=== PATIENT | female | born 1990 | race Asian ===

== ENCOUNTER 2024-04-28 01:39 | Emergency (ER) | payer OTHER, SELFPAY ==
[2024-04-28] MEDS: TYLENOL 1000 MG PO (02:53)
--- NOTE | 2024-04-28 05:28 | ED.GENMED ---
History of Present Illness
General
Chief Complaint: Skin Surface Trauma
Source: patient
Exam Limitations: none
Time Seen by Provider: 04/28/24 05:02
Nursing documentation reviewed up to this point in time: agreed with
History of Present Illness
History of Present Illness:
This is a 33-year-old woman with no history of hypothyroidism, overweight, who states she inadvertently rolled out of bed and struck her left lateral cheek on the bedside table. No loss of consciousness. She takes no anticoagulants. She denies
headache, denies neck or back pain, no vision difficulty.
She complains of a laceration to her left lateral cheek/lateral inferior orbital region that bled a fair amount initially but has since subsided with local pressure.
She complains of pain to her left lateral cheek region.
Up-to-date with Tdap.
Past History
Past History
ED Past Medical History: Hypothyroidism and Other (Overweight)
ED Past Surgical History: None
Social History
Tobacco: Non-smoker
Alcohol: None
Personal:
Living: with family
Family History
Family History: Other (Noncontributory)
Phy Exam
Physical Exam
Physical Exam:
TRAUMA EXAM:
VITAL SIGNS: Vital signs reviewed, cooperative
DISTRESS: No active disease
EYES: Pupils reactive, extraocular muscles intact. There is a superficial puncture wound with superficial laceration approximately 0.4 cm by 0.3 cm left lateral cheek/left inferior lateral orbital region. There is mild ecchymosis and minimal soft
tissue swelling along the lateral cheek with mild local tenderness to palpation along the left zygoma. There is no crepitus nor palpable bony abnormality. No depression deformity.
NOSE: No deformity or epistaxis
FACE AND SCALP: No scalp trauma, external canals no blood
NECK: Supple nontender
BACK: Back nontender, pelvis stable to compression
RESPIRATORY: No distress, breath sounds normal, no tender chest wall
CARDIAC: No murmur, pulses equal and strong
ABDOMEN: Soft nontender bowel sounds normal
SKIN: Skin intact no bleeding, color normal
EXTREMITIES: Nontender
NEUROLOGICAL: Alert, oriented, no motor deficits
PSYCH: Mood affect normal
Course
Orders/Labs/Results
Orders:
Orders
04/28/24 02:51
Acetaminophen [Tylenol] 1,000 mg .ROUTE .STK-MED ONE
04/28/24 02:53
Acetaminophen [Tylenol] 1,000 mg PO NOW STA
04/28/24 02:58
CR Zygo Arches Min 3 Views Urgent
Comment:
Reason For Exam: fall out of bed
Vital Signs
Initial and Last Documented VS:
Initial Vital Signs
Temp Pulse Resp BP Pulse Ox
97.8 F 86 20 132/90 100
04/28/24 01:42 04/28/24 01:42 04/28/24 01:42 04/28/24 01:42 04/28/24 01:42
Last Documented Vital Signs
Temp Pulse Resp BP Pulse Ox
97.8 F 69 14 108/70 99
04/28/24 01:42 04/28/24 03:51 04/28/24 03:51 04/28/24 03:51 04/28/24 03:51
Procedures
Laceration Closure
Left Lateral Cheek:
Status of Wound: clean
Size of Wound in cm: 0.4
Description of Wound Edges: other (Superficial abrasion type injury)
Preparation: cleaned with saline
Revision/Debridement: routine- no revision and irrigate-direct pressure
Wound exploration: explored to base- no FB and no tendon involvement
Type of Closure: Dermabond-skin glue
MDM/Problems Addressed
Differential Diagnosis Includes:
Patient presents with left lateral cheek contusion, superficial laceration/abrasion. Concern for potential occult fracture of the zygoma.
Zygomatic arches performed which is negative for fracture.
Patient reports relief of pain after dose of Tylenol.
She is up-to-date with Tdap.
Will plan for Dermabond wound repair and Steri-Strip.
Recommend supportive measures, local ice, Tylenol versus ibuprofen as needed for pain.
Wound care instructions provided as well.
*Radiology
Radiology exam reviewed: preliminary read by ED provider (Zygomatic arch is negative for fracture.)
*Pulse Oximetry
Patient hypoxic: no
*Critical Care Note
Total Time (30-74mins, 75-104mins- exclusive of procedures): Not Applicable
ED Attending Note
-
Portions of this chart may have been created with voice recognition software.� Occasional wrong word or��sound alike� substitutions may have occurred due to the inherent limitations of voice recognition software.
Discharge Plan
Departure
Patient Disposition: Home (Routine Discharge)
Date of Disposition: 04/28/24
Time of Disposition: 05:28
Patient with high blood pressure during this ER visit?: No
Condition: Good
Discharge Problem:
Contusion of left cheek, laceration left lateral cheek
Instructions: Laceration Repair With Glue (DC), Steri-Strips over Glued Wound
Prescriptions:
No Action
levothyroxine 25 mcg Tablet
25 mcg PO SUTUTHSA
levothyroxine 25 mcg Tablet
50 mcg PO MOWEFR
Zepbound 7.5 mg/0.5 mL Pen Injector
7.5 mg SC QWEEK
Referrals:
Anya Nath DO [Family Provider] - Follow up in 5-7 days
Interventions
Interventions:
*Risk Screen - Suicide Last Done: 04/28/24 01:42
*General Assessment Last Done: 04/28/24 03:51
*Neglect/Abuse Screening Last Done: 04/28/24 01:42
*ED- Fall Risk Assessment Last Done: 04/28/24 03:51
*ED COVID-19 Vaccine History Last Done: 04/28/24 03:51
ED-Musculoskeletal Assessment Last Done: 04/28/24 03:51
ED- Neurological Assessment Last Done: 04/28/24 03:51
ED-Skin Assessment Last Done: 04/28/24 03:51
Discharge Date and Time
Print Language: MOLDOVAN
== END 2024-04-28 05:35 | disposition home or self-care (01) ==
LOC: EMR 01:39
PROVIDERS: EMERGENCY PHYSICIAN Emergency Medicine; FAMILY PHYSICIAN Family Medicine
DX: S01.412A Laceration without foreign body of left cheek and temporomandibular area, initial encounter (principal); W06.XXXA Fall from bed, initial encounter
CPT/HCPCS: 99283; 12011; 70150

== ENCOUNTER 2024-12-02 12:15 | Emergency (ER) | payer OTHER, SELFPAY ==
[2024-12-02 12:21] VITALS: BP 110/81
[2024-12-02 12:41] LABS: Hematocrit 42.7 % (37.0-47.0); Hemoglobin 13.7 g/dL (12.0-16.0); Mean Corp Hgb Conc. 32.1 g/dL (33.0-37.0); Mean Corpuscular Volume 82.1 fL (81.0-99.0); Nucleated Red Blood Cells % 0 %; Platelet Count 393 10^3/uL (130-400); Red Cell Dist. Width 12.3 % (11.5-14.5)
[2024-12-02 13:01] LABS: HCG, Serum Qualitative Screen Negative
--- NOTE | 2024-12-02 13:03 | ED.GENMED ---
History of Present Illness
General
Chief Complaint: Back Pain
Time Seen by Provider: 12/02/24 13:03
History of Present Illness
History of Present Illness:
FOCUSED PAST MEDICAL HISTORY
- Hypothyroidism, has had 2 C-sections
REVIEW OF OLD RECORDS
- The patient was seen here in April diagnosed with a facial contusion
Note:
CHIEF COMPLAINT(S)
Right side abdominal pain.
HISTORY OF PRESENT ILLNESS
The patient is a 34-year-old female presenting with right-sided abdominal pain that began suddenly yesterday at approximately 10:00 AM. She describes the pain as severe, rating it 7 out of 10, and mentioned it was significant enough to impair her
ability to sit or drive comfortably. Initially, she attempted to mitigate the pain with omeprazole and dicyclomine, medications recommended by her sister, a physician. She reports feeling a cramping sensation in the abdomen but denies any burning
sensation during urination, which implies she may not be experiencing dysuria. The patient has also experienced headaches during pain episodes, attributing these symptoms to 'acidity,' which she describes as stomach acid reflux. She states she has
not experienced fever. Physical examination reveals some discomfort with certain positional changes and minimal, if any, costovertebral angle tenderness.
ADDITIONAL HISTORY OBTAINED FROM SOURCES OTHER THAN THE PATIENT
The patients sister, an emergency medicine physician, suggested she try omeprazole and dicyclomine for symptom relief.
SOCIAL DETERMINANTS AFFECTING HEALTH
The patient appears to have familial support, as her sister, who is a physician, is involved in her care decisions.
REVIEW OF SYSTEMS
- Gastrointestinal: Cramping sensation in the abdomen, severe pain on the right side.
- Neurological: Reports headaches when in pain.
- Urinary: No dysuria reported.
- Constitutional: No fever reported.
PHYSICAL EXAM
General: Alert, no acute distress. Appears comfortable, but increased pain with certain position changes.
Skin: Warm, dry.
Head: Normocephalic, atraumatic.
Neck: Supple, trachea midline.
Eye, Ears, Nose, Mouth and Throat: Oral mucosa moist.
Cardiovascular: Regular rhythm; no edema.
Respiratory: Clear lungs, respirations are non-labored.
Gastrointestinal: Abdomen soft, non-tender. Minimal right CVA tenderness if any
Back: Normal range of motion, normal alignment.
Musculoskeletal: Normal ROM, normal strength.
Neurological: Alert and oriented to person, place, time, and situation.
Psychiatric: Cooperative, appropriate mood and affect.
PROBLEM LIST
- Acute right-sided abdominal pain.
PLAN
1. Obtain a urine sample for laboratory analysis.
2. Consider the possibility of a kidney stone and plan for a computed tomography (CT) scan of the abdomen.
3. Discussed the option of intravenous pain management with ketorolac, an anti-inflammatory medication, which the patient may consider.
4. Continue with symptomatic management and reassessment.
DIFFERENTIAL DIAGNOSIS
The Differential Diagnosis includes, in no particular order and is not limited to:
1. Kidney stone
2. Ureteral obstruction
3. Urinary tract infection
4. Appendicitis
5. Gallbladder disease
6. Gastroenteritis
7. Gynecological issues
8. Musculoskeletal pain
9. Abdominal muscle strain
10. Bowel obstruction
RADIOLOGY
- CT imaging shows malposition of the IUD
LABS
- CBC normal, hCG negative, urinalysis negative
UPDATE
-SUMMARY OF ENCOUNTER
The patient was evaluated in the emergency department for right-sided abdominal pain. Upon examination, imaging studies were reviewed which highlighted an abnormal positioning of her intrauterine device (IUD), suspected to be out of place and likely
contributing to her symptoms. There were no findings indicative of a urinary tract or kidney infection, kidney stone, or intestinal issues. The recommendation was made for the patient to contact her urologic surgeon, as a procedure may be required to
address the IUD displacement. The patient was advised to reach out to her initial placement provider at [facility] or to Dr. Luna at [facility] for further evaluation.
DISPOSITION
Discharge.
ASSESSMENT
The patients right-sided abdominal pain is likely due to the displacement of her intrauterine device (IUD).
PLAN
The patient will follow up with her urologic surgeon. Recommendations included contacting [facility], where the [facility] was placed, or Dr. Luna at [facility] for prompt evaluation and management of the displaced IUD.
INDEPENDENT REVIEW OF LABS AND INTERPRETATION OF TESTS
My independent interpretation of radiological imaging indicates the IUD is displaced from its expected position within the uterus.
PATIENT EDUCATION AND COUNSELING
The patient was informed about the abnormal positioning of the IUD and that it might be contributing to her abdominal pain. She was advised about the need for further evaluation by her urologic surgeon and possibly a procedure to reposition or remove
the IUD.
FOLLOW-UP INSTRUCTIONS
The patient was advised to contact [facility] or Dr. Luna for further evaluation and management of the displaced IUD.
MEDICATION RECONCILIATION
Patient advised to take acetaminophen 1,000 mg up to four times a day for pain management, which is equivalent to prescription strength.
MEDICAL DECISION MAKING
-Complexity of Data Reviewed: DDx list includes possible causes for the patients symptoms such as kidney stones, appendicitis, gallbladder disease, among others. Displacement of IUD identified upon imaging.
-Data:
Category 1: My independent interpretation of radiological imaging indicates the IUD is displaced.
Category 2: Clinical information regarding previous placement collected from imaging studies and from patients history.
Category 3: Discussion of management was conducted with an on-call doctor, suggesting follow-up with urologic surgeon for non-emergency procedural intervention.
-Risk: Consideration of Admission/Observation: Escalation of care including admission/observation was considered given the complexity and risk of the patients presenting complaint. However, the patient is safe for outpatient management with close
follow-up as symptoms are controlled and vitals are stable. The patient is agreeable with discharge and reliable for follow-up.
DIAGNOSIS
Displacement of intrauterine contraceptive device (IUD) [T83.32XA].
I discussed case with Dr. Luna, she recommends that she have nonemergent outpatient procedure; the patient's IUD was initially placed at [facility] about 3 years ago and has 1 more recently since been seeing Jessica�I recommend that she
initially try calling them first but I have also given her the contact information for Dr. Luna
Past History
Past History
ED Past Medical History: Hypothyroidism and Other (Overweight)
ED Past Surgical History: None
Social History
Tobacco: Non-smoker
Alcohol: None
Personal:
Living: with family
Family History
Family History: Other (Noncontributory)
Phy Exam
Physical Exam
Physical Exam:
See HPI
Course
Orders/Labs/Results
Orders:
Orders
12/02/24 12:24
Test Result ONCE
12/02/24 12:29
Complete Blood Count/With Diff Urgent
Comprehensive Metabolic Panel Urgent
HCG, Serum Qualitative Screen Urgent
Lipase Urgent
12/02/24 13:16
CT Abd/pel Without Iv Or Oral Urgent
Comment:
Reason For Exam: R flank pain acute
12/02/24 13:19
Urinalysis Reflex To Culture Urgent
Date Specimen was Collected: 12/02/24
Time Specimen was Collected: 13:15
Abnormal Lab Results
12/02/24
12:29
MCH 26.3 L pg
(27.0-31.0)
MCHC 32.1 L g/dL
(33.0-37.0)
Creatinine 0.5 L mg/dL
(0.6-1.0)
Glucose 118 H mg/dl
(70-99)
Alkaline Phosphatase 36 L U/L
(38-126)
12/02/24 12:29
12/02/24 12:29
Vital Signs
Initial and Last Documented VS:
Initial Vital Signs
Temp Pulse Resp BP Pulse Ox
36.7 C 78 20 110/81 98
12/02/24 12:21 12/02/24 12:21 12/02/24 12:21 12/02/24 12:21 12/02/24 12:21
Last Documented Vital Signs
Temp Pulse Resp BP Pulse Ox
36.7 C 78 20 110/81 98
12/02/24 12:21 12/02/24 12:21 12/02/24 12:21 12/02/24 12:21 12/02/24 13:04
*Pulse Oximetry
SaO2: 98
Oxygen Mode of Delivery: Room air
Patient hypoxic: no
*Critical Care Note
Total Time (30-74mins, 75-104mins- exclusive of procedures): Not Applicable
ED Attending Note
-
Portions of this chart may have been created with voice recognition software.� Occasional wrong word or��sound alike� substitutions may have occurred due to the inherent limitations of voice recognition software.
Discharge Plan
Departure
Patient Disposition: Home (Routine Discharge)
Date of Disposition: 12/02/24
Time of Disposition: 15:01
Patient with high blood pressure during this ER visit?: Yes
Discharge Problem:
Complication of intrauterine device (IUD)
Instructions: Abdominal Pain, BLOOD PRESSURE
Prescriptions:
No Action
levothyroxine 25 mcg Tablet
25 mcg PO SUTUTHSA
levothyroxine 25 mcg Tablet
50 mcg PO MOWEFR
Zepbound 7.5 mg/0.5 mL Pen Injector
7.5 mg SC QWEEK
Referrals:
Yamel Luna MD [Active, Gynecology]
Anya Nath DO [Family Provider, Family Practice]
Activity Restrictions/Additional Instructions:
I have attached the CAT scan report below:
CHEST:The included lung bases are predominantly clear.
ABDOMEN:Evaluation of the organs of the abdomen are limited without intravenous contrast, without gross focal intrinsic abnormality of the unenhanced liver, gallbladder, pancreas, spleen or adrenal glands. There is no urinary tract calculus,
dilatation or perinephric stranding bilaterally. Evaluation of the intestinal tract markedly limited without oral or intravenous contrast. There is no gross intestinal obstruction, free air or right lower quadrant inflammatory changes, likely
unremarkable appendix. Few right lower quadrant subcentimeter mesenteric lymph nodes. The abdominal aorta is normal in caliber. There is no retroperitoneal lymphadenopathy or findings to suggest retroperitoneal hemorrhage.
PELVIS:IUD is seen rotated, off axis, vertically oriented, not within the endometrial canal, possibly one wing extending through the uterus into the periuterine soft tissues, axial image 99 series 201 and sagittal reformatted image 58.
SKELETON:There is no focal suspicious osseous lesion.
IMPRESSION:
No findings to suggest urinary tract calculus, dilatation or perinephric stranding bilaterally.
IUD seen rotated, off axis, not positioned within the endometrial canal, and with one wing likely extending through the uterus into the periuterine fat.
I discussed the findings with our on-call urologic surgeon, Dr. Luna, she recommends that you follow-up with your doctors at [facility] or going back to [facility] for their evaluation. This will likely need to be removed but not necessarily on
an emergency basis. Call one of their offices to arrange close follow-up.
Take copy of your CAT scan with you to discuss with your doctors
Interventions
Interventions:
*Risk Screen - Suicide Last Done: 12/02/24 13:20
*General Assessment Last Done: 12/02/24 12:21
*Neglect/Abuse Screening Last Done: 12/02/24 13:20
*ED- Fall Risk Assessment Last Done: 12/02/24 13:20
*ED COVID-19 Vaccine History Last Done: 12/02/24 13:20
*ED Influenza Vaccine History Last Done: 12/02/24 13:20
BI-[id number] Assessment Last Done: 12/02/24 13:20
ED-Musculoskeletal Assessment Last Done: 12/02/24 13:20
Discharge Date and Time
Print Language: ARMENIAN
[2024-12-02 13:14] LABS: ALT (SGPT) 12 U/L (0-35); AST (SGOT) 16 U/L (14-36); Albumin 4.2 g/dl (3.5-5.0); Alkaline Phosphatase 36 U/L (38-126); Blood Urea Nitrogen 9 mg/dl (7-17); Calcium 9.4 mg/dl (8.4-10.2); Carbon Dioxide 24 mmol/L (22-30); Chloride 107 mmol/L (98-107); Glucose 118 mg/dl (70-99); Lipase 51 U/L (23-300); Potassium 3.9 mmol/L (3.5-5.1); Sodium 135 mmol/L (135-145); Total Protein 6.9 g/dl (6.3-8.2); eGFR > 60.00
[2024-12-02 13:20] VITALS: BMI 27.3
[2024-12-02 14:00] LABS: Urine Character Clear (Clear)
[2024-12-02 15:39] VITALS: BP 101/70
--- NOTE | 2024-12-02 15:39 | EDRN ---
REviewed discharge instructions with patient. Verbalized understanding. Ambulated with steady gait to the lobby.
== END 2024-12-02 15:40 | disposition home or self-care (01) ==
LOC: EMR 12:15
PROVIDERS: Student in an Organized Health Care Education/Training Program; EMERGENCY PHYSICIAN Emergency Medicine; FAMILY PHYSICIAN Family Medicine
DX: T83.32XA Displacement of intrauterine contraceptive device, initial encounter (principal); Y76.2 Prosthetic and other implants, materials and accessory obstetric and gynecological devices associated with adverse incidents; R03.0 Elevated blood-pressure reading, without diagnosis of hypertension; E03.9 Hypothyroidism, unspecified
CPT/HCPCS: 99284; 74176; 80053; 81003; 83690; 84703; 85025

== ENCOUNTER 2024-12-30 13:22 | Emergency (ER) | payer OTHER, SELFPAY ==
[2024-12-30 13:31] VITALS: BP 147/79
[2024-12-30 13:54] LABS: Hematocrit 45.4 % (37.0-47.0); Hemoglobin 14.6 g/dL (12.0-16.0); Mean Corp Hgb Conc. 32.2 g/dL (33.0-37.0); Mean Corpuscular Volume 82.2 fL (81.0-99.0); Nucleated Red Blood Cells % 0 %; Platelet Count 378 10^3/uL (130-400); Red Cell Dist. Width 12.2 % (11.5-14.5)
[2024-12-30 14:06] LABS: HCG, Serum Qualitative Screen Negative
[2024-12-30 14:52] LABS: Blood Urea Nitrogen 9 mg/dl (7-17); Calcium 9.9 mg/dl (8.4-10.2); Carbon Dioxide 25 mmol/L (22-30); Chloride 106 mmol/L (98-107); Glucose 98 mg/dl (70-99); Sodium 136 mmol/L (135-145); eGFR > 60.00
[2024-12-30 18:38] VITALS: BP 115/77
[2024-12-30 19:00] VITALS: BP 116/79
[2024-12-30 19:33] VITALS: BP 109/77
[2024-12-30 20:01] VITALS: BP 111/69
--- NOTE | 2024-12-30 20:02 | ED.GENMED ---
History of Present Illness
General
Chief Complaint: Numbness
Source: patient
Exam Limitations: none
Time Seen by Provider: 12/30/24 19:40
Nursing documentation reviewed up to this point in time: agreed with
History of Present Illness
History of Present Illness:
Note:
CHIEF COMPLAINT(S)
Right-sided numbness and pain in the face, foot, and hand.
HISTORY OF PRESENT ILLNESS
The patient is a 34-year-old female who presents with right-sided numbness and pain affecting her face, foot, and hand. The symptoms began this morning. The patient describes her right side as feeling �numb� and �different.� She reports associated
pain in her right hand and foot, with difficulty applying the brake while driving. The patient is right-handed and has difficulty sleeping on her right side due to discomfort. She uses acetaminophen and ibuprofen for pain relief, which helps mildly,
but she avoids sleeping on her right side as it exacerbates the discomfort.
The patient recently returned from [facility] in October. She had an intrauterine device (IUD) removed in November due to malposition and subsequent abdominal cramps. This removal was performed after experiencing back pain and cramps thought to be
related to a potential kidney stone. The patient states the IUD may have been penetrating the uterus, initiating initial pain. Post-removal, she noted pain radiating to the feet, complicating driving. The tramadol, obtained during a trip to [facility],
was prescribed for general pain management and as a precaution.
The patient also stopped her Zepound (an obesity medication) injections two months ago due to her current health conditions. She was initially prescribed this medication for weight management, with an initial weight of 196 pounds.
The patient experiences difficulty driving due to pain and is avoiding the use of her right hand as much as possible. She notes her right side feels less responsive and experiences persistent numbness. She does not report any rash or headaches.
PAST MEDICAL AND SURIGICAL HISTORY
The patient had an intrauterine device malposition, which required removal.
SOCIAL DETERMINANTS AFFECTING HEALTH
The patient recently returned from a trip to [facility]. Tramadol was obtained during this trip as a precaution for potential pain management needs.
SOCIAL HISTORY
The patient resides in the [place] and was visiting family in [place].
MEDICATIONS
- Acetaminophen
- Ibuprofen
- Previously on Zepound injections for weight management
REVIEW OF SYSTEMS
- Neurological: Right-sided numbness and pain in face, foot, and hand.
- Musculoskeletal: Difficulty using right hand and foot.
- General: No headaches or rashes reported.
PHYSICAL EXAM
General: Alert, no acute distress.
Skin: Warm, dry.
Head: Normocephalic, atraumatic.
Neck: Supple, trachea midline.
Eyes, Ears, Nose, Mouth, and Throat: Oral mucosa moist.
Cardiovascular: Normal peripheral perfusion, No edema.
Respiratory: Respirations are non-labored.
Gastrointestinal: Abdomen nondistended.
Back: Normal range of motion, normal alignment.
Musculoskeletal: Reduced sensation but normal muscle strength on right side.
Neurological: Alert and oriented to person, place, time, and situation, noticeable right-sided weakness.
Psychiatric: Cooperative, appropriate mood & affect.
PROBLEM LIST
Acute Problems:
- Right-sided numbness and pain in face, hand, foot.
- Pain after IUD removal.
PLAN
Discuss differential diagnosis and plan with a neurologist for further evaluation of potential nerve involvement. Consider further imaging and neurological assessments.
DIFFERENTIAL DIAGNOSIS
The Differential Diagnosis includes, in no particular order and is not limited to:
- Peripheral neuropathy
- Radiculopathy
- Cervical spondylosis
- Multiple sclerosis
- Transient ischemic attack
- Stroke
- Entrapment neuropathy
- Complex regional pain syndrome
- Myofascial pain syndrome
- Peripheral artery disease
CARE-UPDATE
12/30/24 - 20:21
Consulted with neurologist Dr. Rosas, who recommends follow-up labs including B12 and iron studies, and scheduling an MRI to evaluate for migraines or multiple sclerosis. Patient to initiate Lyrica (Pregabalin) at 25 mg three times daily, with
option to double dosage based on tolerance and efficacy. Advised that medication may cause sleepiness. Follow-up appointments to be scheduled with primary care and Dr. Rosas, with MRI ideally conducted at this hospital for better record access.
Discussed possibility of Zepbound contributing to weight loss and cold intolerance, but neurological causes not ruled out. Decision made to hold on restarting Zepbound until further evaluation. Discharge instructions to include all discussed next
steps and medication guidelines.
EKG
My independent EKG interpretation is:
- Rhythm: Normal sinus rhythm with sinus arrhythmia
- NJ Interval: Short NJ interval
- QRS Duration: Normal QRS
- [place]: Normal axis
- ST Segment: No ST elevation
Disposition:
SUMMARY OF ENCOUNTER
The patient, a 34-year-old female, presented to the emergency department with right-sided numbness and pain affecting her face, hand, and foot, which started the same morning. There was noticeable weakness and reduced sensation on the right side.
The patient recently stopped using Zepound injections and had an IUD removed, experiences affecting her general health. After consultation with a neurologist, it was determined that an MRI is needed for a thorough neurological evaluation. Lyrica
(pregabalin) was prescribed to manage her symptoms.
DISPOSITION
Discharge with follow-up.
ASSESSMENT
Paraparesis and numbness on the right side, possibly secondary to nerve pathology or side effects from significant recent weight loss and previous use of Zepound injections. Continued evaluation is necessary to rule out central nervous system causes.
MANAGEMENT OF THE PATIENTS CARE WAS DISCUSSED WITH
Consultation with a neurologist, Dr. Rosas, who recommends an MRI and follow-up with neurology.
PLAN
The patient will initiate treatment with Lyrica (pregabalin) at a low dose with the option to increase depending on tolerance and effectiveness. Scheduling an MRI scan to evaluate further and follow up with both primary care and neurology for
ongoing assessment and management.
PATIENT EDUCATION AND COUNSELING
Explained the potential causes of her symptoms and the importance of further evaluation through imaging and specialist consultation. Informed about the possibility of medication-induced symptoms and the anticipated effects and side effects of Lyrica.
FOLLOW-UP INSTRUCTIONS
Schedule follow-up appointments with primary care and neurology. Arrange for an MRI at this hospital for consistency in records and further investigation.
MEDICATION RECONCILIATION
Started on pregabalin (Lyrica) 25 mg, three times daily, to manage neurological symptoms, with possible adjustment of dosage based on response and tolerance.
MEDICAL DECISION MAKING
- Number and Complexity of Problems Addressed: Chronic conditions affecting care include previous IUD issues and recent Zepound use. Differential diagnosis includes peripheral neuropathy, radiculopathy, cervical spondylosis, multiple sclerosis,
transient ischemic attack, stroke, entrapment neuropathy, complex regional pain syndrome, myofascial pain syndrome, and peripheral artery disease.
- Data:
- Category 3: Management discussed with neurologist Dr. Rosas for further evaluation involving an MRI scan and follow-up.
- Risk: Prescription medication prescribed.
DIAGNOSIS
Right-sided paresthesia and weakness (ICD-10: R20.2) with neurological evaluation pending. Possible adverse effects from weight management medication and recent physical health changes.
Past History
Past History
ED Past Medical History: Hypothyroidism and Other (Overweight)
ED Past Surgical History: None
Social History
Tobacco: Non-smoker
Alcohol: None
Personal:
Living: with family
Family History
Family History: Other (Noncontributory)
Phy Exam
Physical Exam
Physical Exam:
.
Course
Orders/Labs/Results
Orders:
Orders
12/30/24 13:33
Electrocardiogram (*1) Urgent
Reason for Study: Palpitations
EKG- Treatment ONCE
Test Result ONCE
12/30/24 13:44
Basic Metabolic Panel Urgent
Complete Blood Count/With Diff Urgent
HCG, Serum Qualitative Screen Urgent
12/30/24 15:[address] [CT Head W/o Iv Contrast] Urgent
Comment:
Reason For Exam: numbness
12/30/24 20:30
Pregabalin [Lyrica] 25 mg PO NOW STA
Abnormal Lab Results
12/30/24
13:44
RBC 5.52 H 10^6/uL
(4.20-5.40)
MCH 26.4 L pg
(27.0-31.0)
MCHC 32.2 L g/dL
(33.0-37.0)
Lymphocytes % 17.7 L %
(20.5-51.1)
Creatinine 0.5 L mg/dL
(0.6-1.0)
12/30/24 13:44
12/30/24 13:44
Vital Signs
Initial and Last Documented VS:
Initial Vital Signs
Temp Pulse Resp BP Pulse Ox
97.5 F 98 16 147/79 99
12/30/24 13:31 12/30/24 13:31 12/30/24 13:31 12/30/24 13:31 12/30/24 13:31
Last Documented Vital Signs
Temp Pulse Resp BP Pulse Ox
97.5 F 78 17 111/69 100
12/30/24 13:31 12/30/24 20:30 12/30/24 20:30 12/30/24 20:01 12/30/24 20:04
*Pulse Oximetry
SaO2: 100
Oxygen Mode of Delivery: Room air
Patient hypoxic: no
*Critical Care Note
Total Time (30-74mins, 75-104mins- exclusive of procedures): Not Applicable
ED Attending Note
-
Portions of this chart may have been created with voice recognition software.� Occasional wrong word or��sound alike� substitutions may have occurred due to the inherent limitations of voice recognition software.
Discharge Plan
Departure
Patient Disposition: Home (Routine Discharge)
Date of Disposition: 12/30/24
Time of Disposition: 20:25
Patient with high blood pressure during this ER visit?: No
Condition: Good
Discharge Problem:
Paresthesia of right arm and leg
Instructions: Peripheral Neuropathy (DC), Paresthesia (DC)
Prescriptions:
New
pregabalin [Lyrica] 25 mg capsule
25 mg PO TID Qty: 30 0RF
No Action
levothyroxine 25 mcg Tablet
25 mcg PO SUTUTHSA
levothyroxine 25 mcg Tablet
50 mcg PO MOWEFR
Zepbound 7.5 mg/0.5 mL Pen Injector
7.5 mg SC QWEEK
Referrals:
Alvin Rosas MD [Active, Neurology] - Call in 1-3 days for appt
NONE,* [Active, Internal Medicine]
Activity Restrictions/Additional Instructions:
Begin Lyrica 25 mg 3 times a day. Follow-up with primary care to get MRI of brain with and without contrast. Follow-up with Dr. Rosas, neurologist for further evaluation
Interventions
Interventions:
*Risk Screen - Suicide Last Done: 12/30/24 13:32
*General Assessment Last Done: 12/30/24 18:55
*Neglect/Abuse Screening Last Done: 12/30/24 13:32
*ED- Fall Risk Assessment Last Done: 12/30/24 18:55
*ED COVID-19 Vaccine History Last Done: 12/30/24 18:55
*ED Influenza Vaccine History Last Done: 12/30/24 18:55
*Nursing Disposition Last Done: 12/30/24 21:07
ED- Neurological Assessment Last Done: 12/30/24 19:10
Discharge Date and Time
Discharge Date/Time: 12/30/24 21:07
Print Language: YORUBA
[2024-12-30] MEDS: LYRICA 25 MG PO (21:00)
== END 2024-12-30 21:07 | disposition home or self-care (01) ==
LOC: EMR 13:22
PROVIDERS: Emergency Medicine; EMERGENCY PHYSICIAN Emergency Medicine; FAMILY PHYSICIAN Family Medicine
DX: R20.2 Paresthesia of skin (principal); E03.9 Hypothyroidism, unspecified
CPT/HCPCS: 99284; 70450; 80048; 84703; 85025; 93005

== ENCOUNTER 2025-01-24 12:12 | Emergency (ER) | payer OTHER, SELFPAY ==
[2025-01-24 12:16] VITALS: BP 134/92
[2025-01-24 12:40] VITALS: BP 120/87
[2025-01-24 13:00] VITALS: BP 121/89
--- NOTE | 2025-01-24 13:08 | ED.GENMED ---
History of Present Illness
General
Chief Complaint: Skin Problem
Source: patient and records
Time Seen by Provider: 01/24/25 12:41
History of Present Illness
History of Present Illness:
34-year-old female with past medical history of hypothyroidism presenting to the emergency department for evaluation of a multitude of symptoms that have been either ongoing for weeks and months but also with a uncomfortable rash that is generalized
that she noticed this morning when she was in her bathroom brushing her teeth. Secondary concerns of continued headache, right sided paresthesias, intermittent hot flashes that are usually worse around nighttime and intermittent palpitations.
Patient seen in this ER back in December for the headaches and right-sided paresthesia, had workup done which was largely unremarkable, neurology was consulted and recommended outpatient MRI for MS type workup. Patient does have this MRI scheduled
for the of this month. Patient denies any fevers. She states that she does not believe she ever had the chickenpox as a child, grew up in [place] and is not sure if she was ever immunized for chickenpox in the past.
Past History
Past History
ED Past Medical History: Hypothyroidism and Other (Overweight)
ED Past Surgical History:
Social History
Tobacco: Non-smoker
Alcohol: None
Drug: None
Personal:
Living: with family
Family History
Family History: Other (Noncontributory)
Review of Systems
Review of Systems
All Other Systems: ROS reviewed and negative except as documented in HPI and ROS
Phy Exam
Physical Exam
Physical Exam:
GENERAL: Alert , in no apparent distress
HEAD: Normocephalic atraumatic
EYE: pupils equal a clear conjunctiva
NECK: Supple
ENT: o/p clr, mmm.
CARDIAC: Tachycardic rate, regular rhythm
LUNGS: Clear breath sounds bilaterally, no acute respiratory distress, no wheezes/rales/rhonchi
ABDOMEN: Soft, without focal tenderness, no r/g, no cvat
NEUROLOGICAL: Alert and oriented
SKIN: Warm and dry, generalized erythematous papular rash, ? few small vesicles on forehead, non crusting
MUSCULOSKELETAL: No edema, well perfused.
PSYCH: Normal and appropriate interaction.
Scores
Heart Failure Risk
Heart Failure Risk Score: Not Applicable
Heart Score for Chest Pain Patients
STEMI patient?: Not applicable
Withdrawal Assessment of Alcohol
Withdrawal Assessment Completed?: Not applicable
Course
Orders/Labs/Results
Orders:
Orders
01/24/25 12:13
EKG [Electrocardiogram (*1)] Urgent
Reason for Study: Palpitations
EKG- Treatment ONCE
01/24/25 13:06
0.9% Sodium Chloride 1000 ml [Nss] 1,000 ml IV BOLUS
Ketorolac [Toradol] 30 mg IV NOW STA
01/24/25 13:16
Complete Blood Count/With Diff Urgent
Comprehensive Metabolic Panel Urgent
TSH Urgent
Varicella Zoster IgG (VZV) Urgent
Varicella Zoster IgM [S] Urgent
Abnormal Lab Results
01/24/25
13:16
WBC 4.0 L 10^3/uL
(4.8-10.8)
MCV 78.3 L fL
(81.0-99.0)
MCH 26.8 L pg
(27.0-31.0)
Absolute Lymphs (auto) 0.5 L 10^3/uL
(1.2-3.4)
Neutrophils % 76.9 H %
(42.2-75.2)
Lymphocytes % 13.4 L %
(20.5-51.1)
Sodium 133 L mmol/L
(135-145)
01/24/25 13:16
01/24/25 13:16
Vital Signs
Initial and Last Documented VS:
Initial Vital Signs
Temp Pulse Resp BP Pulse Ox
98.2 F 110 16 134/92 98
01/24/25 12:16 01/24/25 12:16 01/24/25 12:16 01/24/25 12:16 01/24/25 12:16
Last Documented Vital Signs
Temp Pulse Resp BP Pulse Ox
98.2 F 102 15 110/78 99
01/24/25 12:16 01/24/25 15:00 01/24/25 15:00 01/24/25 15:00 01/24/25 15:00
MDM/Problems Addressed
Differential Diagnosis Includes:
MS
Migraine
Tension headache
Contact dermatitis
Rash diffuse so no concern for shingles
Chickenpox
Viral exanthem
MDM/Problems Addressed:
34-year-old female presenting to the ER with a multitude of concerns, some of the symptoms have been ongoing for months and is currently in the midst of an outpatient workup, recently started on Lyrica which she said initially helped some of her
headaches but the last week her headaches had gotten worse, today not as bad. Secondary concern of palpitations and elevated heart rate. She went to urgent care today due to the rash, urgent care thought molluscum contagiosum however given the
rash is not flesh-colored I have less concern for this, there does appear to be some small vesicles on the forehead, question chickenpox as patient is not sure if she has ever been immunized for this. Looks like we will check labs, treat with IV
fluids and Toradol for discomfort. Reassessment following. Anticipate this will need further continued outpatient based care.
*Pulse Oximetry
SaO2: 100
Oxygen Mode of Delivery: Room air
Patient hypoxic: no
Data Reviewed
Review of Other/Old Records Reveals: Labs and Records
Patient Management
Escalation/DeEscalation of care consider admission/obs:
Based off of patient's workup I do not have suspicion for an emergent pathology however I did discuss with patient given her multitude of symptoms I did suspect a few different etiologies for her symptoms and that she should continue her workup with
neurology due to her headaches and paresthesias as well as may need to see dermatology for the rash. Varicella antibody titers pending. Advised on return precautions but otherwise stable for discharge home.
ED Attending Note
-
Portions of this chart may have been created with voice recognition software.� Occasional wrong word or��sound alike� substitutions may have occurred due to the inherent limitations of voice recognition software.
Discharge Plan
Departure
Patient Disposition: Home (Routine Discharge)
Date of Disposition: 01/24/25
Time of Disposition: 15:19
Patient with high blood pressure during this ER visit?: No
Discharge Problem:
Rash and nonspecific skin eruption, Palpitations, Headache
Instructions: Skin Rash (DC)
Prescriptions:
No Action
levothyroxine 25 mcg Tablet
25 mcg PO SUTUTHSA
levothyroxine 25 mcg Tablet
50 mcg PO MOWEFR
Zepbound 7.5 mg/0.5 mL Pen Injector
7.5 mg SC QWEEK
pregabalin [Lyrica] 25 mg capsule
25 mg PO TID Qty: 30 0RF
Referrals:
Anya Nath DO [Family Provider, Family Practice]
Betsy Hung DO [Active, Dermatology]
Interventions
Interventions:
*Risk Screen - Suicide Last Done: 01/24/25 12:16
*General Assessment Last Done: 01/24/25 12:46
*Neglect/Abuse Screening Last Done: 01/24/25 12:16
*ED COVID-19 Vaccine History Last Done: 01/24/25 12:46
*ED Influenza Vaccine History Last Done: 01/24/25 12:46
[facility] Fall Risk Assessment Tool Last Done: 01/24/25 12:24
*Nursing Disposition Last Done: 01/24/25 15:33
ED-Skin Assessment Last Done: 01/24/25 12:50
Discharge Date and Time
Discharge Date/Time: 01/24/25 15:52
Print Language: [email or web address]
[2025-01-24] MEDS: NSS 1000 IV (13:17)
[2025-01-24] MEDS: TORADOL 30 MG IV (13:18)
[2025-01-24 13:26] LABS: Hematocrit 40.0 % (37.0-47.0); Hemoglobin 13.7 g/dL (12.0-16.0); Mean Corp Hgb Conc. 34.3 g/dL (33.0-37.0); Mean Corpuscular Volume 78.3 fL (81.0-99.0); Platelet Count 188 10^3/uL (130-400); Red Cell Dist. Width 12.0 % (11.5-14.5)
[2025-01-24 13:40] LABS: ALT (SGPT) 17 U/L (0-35); AST (SGOT) 24 U/L (14-36); Albumin 4.1 g/dl (3.5-5.0); Alkaline Phosphatase 45 U/L (38-126); Blood Urea Nitrogen 7 mg/dl (7-17); Calcium 9.0 mg/dl (8.4-10.2); Carbon Dioxide 26 mmol/L (22-30); Chloride 100 mmol/L (98-107); Glucose 83 mg/dl (70-99); Potassium 3.8 mmol/L (3.5-5.1); Sodium 133 mmol/L (135-145); Total Protein 6.6 g/dl (6.3-8.2); eGFR > 60.00
[2025-01-24 13:57] LABS: Nucleated Red Blood Cells % 0 %
[2025-01-24 14:06] VITALS: BP 108/78
[2025-01-24 14:10] LABS: TSH 1.39 uIU/ml (0.47-4.68)
[2025-01-24 15:00] VITALS: BP 110/78
== END 2025-01-24 15:52 | disposition home or self-care (01) ==
LOC: EMR 12:12
PROVIDERS: Physician Assistant Medical; EMERGENCY PHYSICIAN Emergency Medicine; FAMILY PHYSICIAN Family Medicine
DX: R21 Rash and other nonspecific skin eruption (principal); R00.2 Palpitations; R51.9 Headache, unspecified; E03.9 Hypothyroidism, unspecified
CPT/HCPCS: 99284; 96374; 96361; 80053; 84443; 85025; 86787; 93005